=== PATIENT | female | born 1990 | race Caucasian/White ===

== ENCOUNTER 2021-10-12 21:02 | Emergency (ER) | payer OTHER ==
[~2021-10-12 21:02] MED LIST: MEDROL4 MG PO
[2021-10-12 21:42] LABS: HEMOGLOBIN 13.9 gm/dl (12.3-15.3); RED BLOOD COUNT 4.89 M/UL (4.00-5.10); WHITE BLOOD COUNT 13.6 K/UL (4.5-11.0)
[2021-10-12 22:03] LABS: BUN/CREATININE RATIO 14 (0-10)
== END 2021-10-13 06:34 | disposition short-term general hospital (02) ==
LOC: ER1 21:02
PROVIDERS: Family Medicine
DX: N13.2 Hydronephrosis with renal and ureteral calculous obstruction (principal); N39.0 Urinary tract infection, site not specified; F17.290 Nicotine dependence, other tobacco product, uncomplicated; E66.9 Obesity, unspecified; Z90.49 Acquired absence of other specified parts of digestive tract; Z20.822 Contact with and (suspected) exposure to COVID-19
CPT/HCPCS: 80053; 81001; 83690; 84703; 85025; 87086; 96374; 99285; J0696; J1885; U0002